=== PATIENT | male | born 1975 | race Caucasian/White ===

== ENCOUNTER 2022-04-06 19:33 | Emergency (ER) | payer OTHER, SELFPAY ==
[2022-04-06] VITALS (21 sets, daily range): BP systolic 93–185; BP diastolic 51–132; PULSE 101–123; RESP 20; TEMP 36.9; O2SAT 94–97; BMI 30.8
--- NOTE | 2022-04-06 | CRLHL7_ITS ---
For Patients: As a result of the Cures Act, medical imaging exams and procedure reports are released immediately into your electronic medical record. You may view this report before your referring provider. If you have questions, please contact your health care provider. INDICATION: Status post fall. TECHNIQUE: Chest radiograph 1 view COMPARISON: 04/17/2018 FINDINGS: Cardiovascular and mediastinum: The heart silhouette is normal in size and morphology. The mediastinum is normal in appearance. Lungs and pleural spaces: Both lungs are unremarkable in appearance. No sign of pleural effusion seen. No pneumothorax is identified. Bones and soft tissues: Screw and plate fixation harder at both clavicles. No displaced rib fracture. IMPRESSION: 1. No acute cardiopulmonary disease is seen. Dictated by Shahid White MD @ 04/06/2022 8:14:02 PM Dictated by: Shahid White MD @ 04/06/2022 20:14:09 (Electronically Signed)
--- NOTE | 2022-04-06 19:52 | CRLHL7_ITS ---
For Patients: As a result of the Century Cures Act, medical imaging exams and procedure reports are released immediately into your electronic medical record. You may view this report before your referring provider. If you have questions, please contact your health care provider. INDICATION: Full trauma. TECHNIQUE: CT chest, abdomen and pelvis acquired with 100 cc Isovue 370 IV contrast. COMPARISON: None. FINDINGS: CHEST: Cardiovascular structures: Heart size is normal. Thoracic aorta and main pulmonary artery are normal in caliber. Mediastinum and rik: No lymphadenopathy. Calcified left hilar and mediastinal lymph nodes. Lungs and pleura: 8 mm left lower lobe posterior basal segment pulmonary nodule. The lungs are otherwise clear without consolidation, pleural effusion, or pneumothorax. Chest wall and axilla: No mass or adenopathy. Bones: Bilateral clavicle plate and screw hardware. No acute fracture or dislocation. ABDOMEN AND PELVIS: Liver: Unremarkable. No sign of acute injury. Gallbladder and bile ducts: Unremarkable. Pancreas: Unremarkable. Spleen: Unremarkable. No sign of acute injury. Adrenal glands: Unremarkable. Kidneys: Unremarkable. GI tract: Small hiatal hernia. Diverticulosis without pericolonic inflammation. No obstruction. Normal appendix. Vascular structures: Unremarkable. Mesenteric arteries are patent. Lymph nodes: Unremarkable. Miscellaneous: Unremarkable. No free air or significant free fluid. Pelvic Organs: Unremarkable. Bones: No acute fracture or dislocation. IMPRESSION: No sign of acute injury within the chest, abdomen, and pelvis. 8 mm left lower lobe pulmonary nodule. Recommend follow-up chest CT in 3 months to evaluate for interval change. Please note that all CT scans at this facility use dose modulation, iterative reconstruction, and/or weight-based dosing when appropriate to reduce radiation dose to as low as reasonably achievable. Dictated by Masoud Mcnulty MD @ 04/06/2022 8:50:40 PM (Electronically Signed)
--- NOTE | 2022-04-06 19:52 | CRLHL7_ITS ---
For Patients: As a result of the Century Cures Act, medical imaging exams and procedure reports are released immediately into your electronic medical record. You may view this report before your referring provider. If you have questions, please contact your health care provider. INDICATION: Fall. TECHNIQUE: Noncontrast CT images acquired through the brain. COMPARISON: None. FINDINGS: The ventricles and sulci are within normal limits for patient age. No mass effect or midline shift. The britton-white differentiation is maintained. No acute intracranial hemorrhage or pathologic extra-axial fluid collection. The globes are symmetric. The calvarium is intact. Mild to moderate paranasal sinus mucosal thickening. The mastoid air cells are clear. IMPRESSION: No acute intracranial hemorrhage or mass effect. Please note that all CT scans at this facility use dose modulation, iterative reconstruction, and/or weight-based dosing when appropriate to reduce radiation dose to as low as reasonably achievable. Dictated by Alton Messer MD @ 04/06/2022 8:25:03 PM (Electronically Signed)
--- NOTE | 2022-04-06 19:52 | CRLHL7_ITS ---
For Patients: As a result of the Century Cures Act, medical imaging exams and procedure reports are released immediately into your electronic medical record. You may view this report before your referring provider. If you have questions, please contact your health care provider. INDICATION: Fall. TECHNIQUE: Noncontrast CT images acquired through the cervical spine. COMPARISON: None. FINDINGS: The cervical lordosis is maintained. Vertebral heights preserved. No acute fracture, spondylolisthesis, or traumatic subluxation. Posterior disc osteophyte complex mildly narrows the spinal canal at C5-6. Mild multilevel facet arthropathy. No high-grade spinal canal or neural foraminal stenosis. No concerning opacities in the lung apices. IMPRESSION 1. No acute fracture or traumatic subluxation. 2. Mild multilevel cervical spondylosis. Please note that all CT scans at this facility use dose modulation, iterative reconstruction, and/or weight-based dosing when appropriate to reduce radiation dose to as low as reasonably achievable. Dictated by Alton Messer MD @ 04/06/2022 8:29:25 PM (Electronically Signed)
--- NOTE | 2022-04-06 20:06 | ED.GENADULT ---
HPI - General Adult General Date Seen: 04/06/22 Chief complaint: Fall/Minor Trauma Stated complaint: Fall Time Seen by Provider: 04/06/22 19:42 Source: patient and EMS Mode of arrival: EMS History of Present Illness HPI narrative: Patient is a 46-year-old male who presents via EMS at around 7:30 p.m.. History is provided by EMS that he was found in his vehicle, [place] his [place]. He does not remember getting into his deer stand, nor does he remember falling out of his deer stand. He does remember apparently crawling to his vehicle, he called 911. Medics note stable vital signs, he was not given medications. Patient tells me that this morning, he did have alcohol on board. He dropped his daughter off at a different location to [place], and then had proceeded to his deer stand. All of this is on his own property. He remembers getting to his deer stand. This would have been at about 4:00 p.m.. He does not remember anything after that. He thinks that he probably fell out of his deer stand because he has pain in his chest when he moves. He also has neck pain. He has a slight headache. He has not had any vomiting that he is aware of. He admits that he has alcohol on board, but he does not think that he had enough to drink that this would affect his ability to remember. He denies back pain. He has chronic pain in his ankle, but otherwise denies any other extremity pain. He is able to answer questions appropriately, and current memory is intact. He denies any medications other than something for depression. He denies allergies. Related Data Home Medications Medication Instructions Recorded Confirmed sertraline 50 mg tablet 50 mg PO 02/26/22 02/26/22 Allergies Allergy/AdvReac Type Severity Reaction Status Date / Time No Known Drug Allergies Allergy Verified 02/26/22 17:18 Review of Systems Status of ROS: Reports: 10 or more systems reviewed and unremarkable except as noted in History and below [facility] Medical History Sprain of right acromioclavicular joint Surgical History S/P ORIF (open reduction internal fixation) fracture (04/28/18) Social History Smoking Status: Current every day smoker What tobacco products do you use: cigarettes Do you use any of these nicotine containing products: Smokeless Tobacco Nicotine containing products detail: chewing tobacco Second hand tobacco smoke exposure: No Non-prescribed substance use: denies use Exam Narrative: Exam Narrative: Primary survey: Airway: Patent. Breathing: Nonlabored. Lungs clear. Circulation: Pulses intact. No external bleeding. Disability: GCS 14, loss of memory of event. Secondary survey: Vital signs reviewed In general, an alert, nontoxic male. Head: Normocephalic, atraumatic. Eyes: Pupils are equal reactive. Extraocular movements full. ENT: No facial trauma. Dentition intact. Neck: Cervical collar in place. No midline cervical tenderness. No anterior neck trauma. Chest: No visible signs of chest trauma. No tenderness to palpation. Heart regular rate and rhythm. Lungs clear bilaterally. Breath sounds equal. Abdomen: No visible signs of trauma. Soft, nondistended, nontender to palpation. Back: No visible signs of trauma. Nontender to palpation. Pelvis: Stable, nontender. Extremities: Atraumatic and nontender to palpation. Neurologic: Alert, conversant, moves all extremities to command. Skin: Warm and dry, no abrasions or lacerations. Const: Vital Signs, click to edit/add: Vital Signs - 24 hr 04/06/22 19:51 04/06/22 19:54 04/06/22 20:20 Temperature Pulse Rate 123 H Pulse Rate [Pulse Oximeter] Respiratory Rate Blood Pressure 150/98 H 159/119 H Blood Pressure [Le ft Upper Arm] Pulse Oximetry 96 95 Oxygen Delivery Me thod 04/06/22 20:21 04/06/22 20:30 04/06/22 20:31 Temperature Pulse Rate 101 H 105 H 107 H Pulse Rate [Pulse Oximeter] Respiratory Rate Blood Pressure 166/109 H 152/107 H Blood Pressure [Le ft Upper Arm] Pulse Oximetry 94 95 95 Oxygen Delivery Me thod 04/06/22 19:35 04/06/22 20:32 04/06/22 20:41 Temperature 98.5 F Pulse Rate 106 H Pulse Rate [Pulse Oximeter] 115 H Respiratory Rate 20 Blood Pressure 150/87 H Blood Pressure [Le ft Upper Arm] 155/100 H Pulse Oximetry 97 95 Oxygen Delivery Me thod Room Air 04/06/22 20:51 04/06/22 21:01 04/06/22 21:12 Temperature Pulse Rate Pulse Rate [Pulse Oximeter] Respiratory Rate Blood Pressure 137/85 158/132 H 185/100 H Blood Pressure [Le ft Upper Arm] Pulse Oximetry Oxygen Delivery Me thod 04/06/22 21:22 04/06/22 21:31 04/06/22 21:41 Temperature Pulse Rate Pulse Rate [Pulse Oximeter] Respiratory Rate Blood Pressure 151/83 H 125/67 118/73 Blood Pressure [Le ft Upper Arm] Pulse Oximetry Oxygen Delivery Me thod 04/06/22 21:50 04/06/22 21:51 04/06/22 22:01 Temperature Pulse Rate 110 H 110 H Pulse Rate [Pulse Oximeter] Respiratory Rate Blood Pressure 125/70 95/60 Blood Pressure [Le ft Upper Arm] Pulse Oximetry Oxygen Delivery Me thod 04/06/22 22:11 04/06/22 22:25 04/06/22 22:32 Temperature Pulse Rate Pulse Rate [Pulse Oximeter] Respiratory Rate Blood Pressure 100/51 L 93/57 L 113/68 Blood Pressure [Le ft Upper Arm] Pulse Oximetry Oxygen Delivery Me thod 04/07/22 06:51 04/07/22 05:00 Temperature 98.5 F Pulse Rate Pulse Rate [Pulse Oximeter] 81 81 Respiratory Rate 16 16 Blood Pressure Blood Pressure [Le ft Upper Arm] 148/91 H 151/89 H Pulse Oximetry 97 Oxygen Delivery Me thod Room Air Documenting provider has reviewed patient's vital signs: yes Course Course Hospital Course: Following initial evaluation, I did an E fast exam. He had sliding lung signs bilaterally, no evidence of pericardial effusion, and no fluid on abdominal exam. He had a portable chest x-ray which by my review showed no acute findings such as pneumothorax, obvious fracture. Then went on to have CT scans of the head, cervical spine, chest abdomen pelvis. He had labs drawn for CBC, basic metabolic panel, coags, LFTs, UA, urine drug screen, and blood alcohol level, as well as a point of care troponin. I also did an EKG, which by my review showed a sinus tachycardia, ventricular rate of 105 beats per minute. He did not have acute ST segment changes. His troponin came back at 0. Labs showed a normal white blood cell count and hemoglobin of 15.4. Platelets were normal. INR was 0.83. Metabolic panel was normal. Blood sugar was 86. LFT showed an AST of 58 and an ALT of 97. Otherwise normal. Urinalysis showed trace blood, 0-2 red cells 0-2 white cells. Urine drug screen was negative. His blood alcohol came back at 0.26. I reviewed his head CT, and CTs of his chest abdomen and pelvis. Head CT to me look negative without evidence of hemorrhage or fracture. I did not see any acute findings on the chest, abdomen or pelvis. Final radiology read for his chest abdomen pelvis, head and cervical spine were all negative for acute findings. On the lungs, they did note an 8 mm pulmonary nodule in the left lung. I have discussed all this with the patient, and his 18-year-old daughter was there as well. Patient tells me he has a diagnosis of histoplasmosis and he thinks that that lesion on the left is old, he says he has had biopsies on his long previously. He believes he had a CT scan somewhere [address] [facility] previously but he can not remember where. I told him that the radiologist is recommending a 3 month follow-up for this lesion, which he should arrange through primary care unless he can compare with the previous scan or read to see if that lesion is stable. At this time, it is a little unclear exactly what happened today. There are several hours during which time the patient's activities are unaccounted for, and he does not have any memory of what was going on during that time. He may have had a fall from his deer stand, he may have had a syncopal episode, he may have had a fall from standing height. He does have pain that leads him to believe that he had an injury of some kind. His blood alcohol now is 0.26, based on how lucid he is, I suspect that he has a significant alcohol history. However, I recommended to him that we have him stay here for observation for at least another 4-6 hours, so that we have the opportunity to have a conversation with less alcohol on board, to clear his C-spine, and make sure he is not having any further neurologic difficulties. It is unclear to me whether he may have had a concussion or whether his memory loss is simply due to alcohol. Initially he had agreed to that, then got a little more difficult, he took off his collar, said he just was uncomfortable and wanted to go home. I was able to talk with him a little bit more and at this point he has agreed to stay overnight and just have someone pick him up in the morning. Right now, he is refusing to wear the cervical collar, and given the negative CT scan, I think it is more reasonable not to force that issue. Likewise, I have told him that if he really decides that he is going to leave that we will not having a physical altercation him to stay, but that my request would be that he wait until he is able to make a sober decision to leave. Plan at this time is for him to stay here overnight, and 1 of his daughters will pick him up in the morning. I think if he is neurologically stable at that time, not complaining of midline neck pain, that he can be discharged with outpatient follow-up. Patient is signed out to Dr. Becerra for the night. Vital Signs Vital signs: Initial Vital Signs Temperature 98.5 F 04/06/22 19:35 Temperature Source Temporal Artery Scan 04/06/22 19:35 Pulse Rate 115 H 04/06/22 19:35 Pulse Rhythm 04/06/22 19:35 Respiratory Rate 20 04/06/22 19:35 Blood Pressure 155/100 H 04/06/22 19:35 Blood Pressure Mean 118 04/06/22 19:35 Blood Pressure Position Supine 04/06/22 19:35 Pulse Oximetry 97 04/06/22 19:35 Oxygen Delivery Method 04/06/22 19:35 Vital Signs Temperature 98.5 F 04/06/22 19:35 Pulse Rate 115 H 04/06/22 19:35 Respiratory Rate 20 04/06/22 19:35 Blood Pressure 155/100 H 04/06/22 19:35 Pulse Oximetry 97 04/06/22 19:35 Oxygen Delivery Method 04/06/22 19:35 Temperature 98.5 F 04/07/22 05:00 Pulse Rate 81 04/07/22 06:51 Respiratory Rate 16 04/07/22 06:51 Blood Pressure 148/91 H 04/07/22 06:51 Pulse Oximetry 97 04/07/22 05:00 Oxygen Delivery Method 04/07/22 05:00 Medical Decision Making Lab Data Labs: Lab Results 04/06/22 04/06/22 04/06/22 Range/Units 19:56 19:56 19:56 WBC 10.45 (4.50-11.00) K/uL RBC 4.40 (4.30-5.90) m/uL Hgb 15.4 (13.5-17.5) gm/dL Hct 44.6 (37.0-53.0) % MCV 101 H (80-100) fL MCH 35 H (26-34) pg MCHC 35 (32-36) gm/dL RDW Coeff of Spencer 12.4 (11.5-15.5) % Plt Count 337 (140-440) K/uL Neut % (Auto) 83.2 H (42.0-72.0) % Lymph % (Auto) 10.9 L (20-44) % Walsh % (Auto) 4.5 (0.0-11.0) % Eos % (Auto) 0.8 (0.0-7.0) % Baso % (Auto) 0.2 (0.0-3.0) % Neut # (Auto) 8.70 H (1.7-7.0) K/uL Lymph # (Auto) 1.10 (0.90-2.90) K/uL Walsh # (Auto) 0.50 (0.00-0.90) K/UL Eos # (Auto) 0.08 (0.00-0.50) K/uL Baso # (Auto) 0.02 (0.00-0.30) K/uL INR 0.83 L (0.91-1.10) APTT 28 (23-33) Seconds Sodium 145 (135-149) mmol/L Potassium 4.3 (3.6-5.1) mmol/L Chloride 109 (96-114) mmol/L Carbon Dioxide 24 (20-32) mmol/L BUN 17 (5-24) mg/dL Creatinine 0.9 (0.5-1.5) mg/dL Estimated GFR 107 ml/min Glucose 86 (60-115) mg/dL Calcium 8.6 (8.4-10.6) mg/dL Total Bilirubin (0.1-1.5) mg/dL Direct Bilirubin (0.0-0.5) mg/dL AST (12-35) U/L ALT (4-50) U/L Alkaline Phosphatase (40-150) U/L Total Protein (6.0-8.3) g/dL Albumin (3.3-5.0) g/dL Urine Color (Yellow) Urine Appearance (Clear) Urine pH (5.0-8.5) Ur Specific [place] (1.000-1.030) Urine Protein (Negative) Urine Glucose (UA) (Negative) Urine Ketones (Negative) Urine Blood (Negative) Urine Nitrite (Negative) Urine Bilirubin (Negative) Urine Urobilinogen (0.2-1.0) Ur Leukocyte Esterase (Negative) Urine RBC (0-2) Urine WBC (0-5) Ur Squamous Epith Cells (None-Few) Urine Bacteria (None) Urine Opiates Screen (Negative) Ur Oxycodone Screen (Negative) Urine Methadone Screen (Negative) Ur Propoxyphene Screen (Negative) Ur Barbiturates Screen (Negative) U Tricyclic Antidepress (Negative) Ur Phencyclidine Scrn (Negative) Ur Amphetamines Screen (Negative) U Methamphetamines Scrn (Negative) U Benzodiazepines Scrn (Negative) Urine Cocaine Screen (Negative) U Marijuana (THC) Screen (Negative) Ur Drug Screen Comment Ethyl Alcohol (0.01-0.03) % SARS-CoV-2 (PCR) (Negative) POC Troponin I (0.01-0.04) ng/ml Blood Type Antibody Screen 04/06/22 04/06/22 04/06/22 Range/Units 19:56 19:56 19:56 WBC (4.50-11.00) K/uL RBC (4.30-5.90) m/uL Hgb (13.5-17.5) gm/dL Hct (37.0-53.0) % MCV (80-100) fL MCH (26-34) pg MCHC (32-36) gm/dL RDW Coeff of Spencer (11.5-15.5) % Plt Count (140-440) K/uL Neut % (Auto) (42.0-72.0) % Lymph % (Auto) (20-44) % Walsh % (Auto) (0.0-11.0) % Eos % (Auto) (0.0-7.0) % Baso % (Auto) (0.0-3.0) % Neut # (Auto) (1.7-7.0) K/uL Lymph # (Auto) (0.90-2.90) K/uL Walsh # (Auto) (0.00-0.90) K/UL Eos # (Auto) (0.00-0.50) K/uL Baso # (Auto) (0.00-0.30) K/uL INR (0.91-1.10) APTT (23-33) Seconds Sodium (135-149) mmol/L Potassium (3.6-5.1) mmol/L Chloride (96-114) mmol/L Carbon Dioxide (20-32) mmol/L BUN (5-24) mg/dL Creatinine (0.5-1.5) mg/dL Estimated GFR ml/min Glucose (60-115) mg/dL Calcium (8.4-10.6) mg/dL Total Bilirubin 0.5 (0.1-1.5) mg/dL Direct Bilirubin 0.2 (0.0-0.5) mg/dL AST 58 H (12-35) U/L ALT 97 H (4-50) U/L Alkaline Phosphatase 81 (40-150) U/L Total Protein 8.1 (6.0-8.3) g/dL Albumin 5.0 (3.3-5.0) g/dL Urine Color (Yellow) Urine Appearance (Clear) Urine pH (5.0-8.5) Ur Specific [place] (1.000-1.030) Urine Protein (Negative) Urine Glucose (UA) (Negative) Urine Ketones (Negative) Urine Blood (Negative) Urine Nitrite (Negative) Urine Bilirubin (Negative) Urine Urobilinogen (0.2-1.0) Ur Leukocyte Esterase (Negative) Urine RBC (0-2) Urine WBC (0-5) Ur Squamous Epith Cells (None-Few) Urine Bacteria (None) Urine Opiates Screen (Negative) Ur Oxycodone Screen (Negative) Urine Methadone Screen (Negative) Ur Propoxyphene Screen (Negative) Ur Barbiturates Screen (Negative) U Tricyclic Antidepress (Negative) Ur Phencyclidine Scrn (Negative) Ur Amphetamines Screen (Negative) U Methamphetamines Scrn (Negative) U Benzodiazepines Scrn (Negative) Urine Cocaine Screen (Negative) U Marijuana (THC) Screen (Negative) Ur Drug Screen Comment Ethyl Alcohol (0.01-0.03) % SARS-CoV-2 (PCR) (Negative) POC Troponin I 0.00 L (0.01-0.04) ng/ml Blood Type A Positive Antibody Screen NEGATIVE 04/06/22 04/06/22 04/06/22 Range/Units 19:56 20:27 20:37 WBC (4.50-11.00) K/uL RBC (4.30-5.90) m/uL Hgb (13.5-17.5) gm/dL Hct (37.0-53.0) % MCV (80-100) fL MCH (26-34) pg MCHC (32-36) gm/dL RDW Coeff of Spencer (11.5-15.5) % Plt Count (140-440) K/uL Neut % (Auto) (42.0-72.0) % Lymph % (Auto) (20-44) % Walsh % (Auto) (0.0-11.0) % Eos % (Auto) (0.0-7.0) % Baso % (Auto) (0.0-3.0) % Neut # (Auto) (1.7-7.0) K/uL Lymph # (Auto) (0.90-2.90) K/uL Walsh # (Auto) (0.00-0.90) K/UL Eos # (Auto) (0.00-0.50) K/uL Baso # (Auto) (0.00-0.30) K/uL INR (0.91-1.10) APTT (23-33) Seconds Sodium (135-149) mmol/L Potassium (3.6-5.1) mmol/L Chloride (96-114) mmol/L Carbon Dioxide (20-32) mmol/L BUN (5-24) mg/dL Creatinine (0.5-1.5) mg/dL Estimated GFR ml/min Glucose (60-115) mg/dL Calcium (8.4-10.6) mg/dL Total Bilirubin (0.1-1.5) mg/dL Direct Bilirubin (0.0-0.5) mg/dL AST (12-35) U/L ALT (4-50) U/L Alkaline Phosphatase (40-150) U/L Total Protein (6.0-8.3) g/dL Albumin (3.3-5.0) g/dL Urine Color (Yellow) Urine Appearance (Clear) Urine pH (5.0-8.5) Ur Specific [place] (1.000-1.030) Urine Protein (Negative) Urine Glucose (UA) (Negative) Urine Ketones (Negative) Urine Blood (Negative) Urine Nitrite (Negative) Urine Bilirubin (Negative) Urine Urobilinogen (0.2-1.0) Ur Leukocyte Esterase (Negative) Urine RBC (0-2) Urine WBC (0-5) Ur Squamous Epith Cells (None-Few) Urine Bacteria (None) Urine Opiates Screen Negative (Negative) Ur Oxycodone Screen Negative (Negative) Urine Methadone Screen Negative (Negative) Ur Propoxyphene Screen Negative (Negative) Ur Barbiturates Screen Negative (Negative) U Tricyclic Antidepress Negative (Negative) Ur Phencyclidine Scrn Negative (Negative) Ur Amphetamines Screen Negative (Negative) U Methamphetamines Scrn Negative (Negative) U Benzodiazepines Scrn Negative (Negative) Urine Cocaine Screen Negative (Negative) U Marijuana (THC) Screen Negative (Negative) Ur Drug Screen Comment See Note Ethyl Alcohol 0.26 H (0.01-0.03) % SARS-CoV-2 (PCR) Negative SARS-CoV-2 (Negative) POC Troponin I (0.01-0.04) ng/ml Blood Type Antibody Screen 04/06/22 Range/Units 20:37 WBC (4.50-11.00) K/uL RBC (4.30-5.90) m/uL Hgb (13.5-17.5) gm/dL Hct (37.0-53.0) % MCV (80-100) fL MCH (26-34) pg MCHC (32-36) gm/dL RDW Coeff of Spencer (11.5-15.5) % Plt Count (140-440) K/uL Neut % (Auto) (42.0-72.0) % Lymph % (Auto) (20-44) % Walsh % (Auto) (0.0-11.0) % Eos % (Auto) (0.0-7.0) % Baso % (Auto) (0.0-3.0) % Neut # (Auto) (1.7-7.0) K/uL Lymph # (Auto) (0.90-2.90) K/uL Walsh # (Auto) (0.00-0.90) K/UL Eos # (Auto) (0.00-0.50) K/uL Baso # (Auto) (0.00-0.30) K/uL INR (0.91-1.10) APTT (23-33) Seconds Sodium (135-149) mmol/L Potassium (3.6-5.1) mmol/L Chloride (96-114) mmol/L Carbon Dioxide (20-32) mmol/L BUN (5-24) mg/dL Creatinine (0.5-1.5) mg/dL Estimated GFR ml/min Glucose (60-115) mg/dL Calcium (8.4-10.6) mg/dL Total Bilirubin (0.1-1.5) mg/dL Direct Bilirubin (0.0-0.5) mg/dL AST (12-35) U/L ALT (4-50) U/L Alkaline Phosphatase (40-150) U/L Total Protein (6.0-8.3) g/dL Albumin (3.3-5.0) g/dL Urine Color Yellow (Yellow) Urine Appearance Clear (Clear) Urine pH 5.5 (5.0-8.5) Ur Specific [place] 1.015 (1.000-1.030) Urine Protein Negative (Negative) Urine Glucose (UA) Negative (Negative) Urine Ketones Trace A (Negative) Urine Blood Trace-lysed A (Negative) Urine Nitrite Negative (Negative) Urine Bilirubin Negative (Negative) Urine Urobilinogen 0.2 (0.2-1.0) Ur Leukocyte Esterase Negative (Negative) Urine RBC 0-2 (0-2) Urine WBC 0-2 (0-5) Ur Squamous Epith Cells None (None-Few) Urine Bacteria None (None) Urine Opiates Screen (Negative) Ur Oxycodone Screen (Negative) Urine Methadone Screen (Negative) Ur Propoxyphene Screen (Negative) Ur Barbiturates Screen (Negative) U Tricyclic Antidepress (Negative) Ur Phencyclidine Scrn (Negative) Ur Amphetamines Screen (Negative) U Methamphetamines Scrn (Negative) U Benzodiazepines Scrn (Negative) Urine Cocaine Screen (Negative) U Marijuana (THC) Screen (Negative) Ur Drug Screen Comment Ethyl Alcohol (0.01-0.03) % SARS-CoV-2 (PCR) (Negative) POC Troponin I (0.01-0.04) ng/ml Blood Type Antibody Screen Discharge Plan Discharge Clinical Impression: Concussion, Alcohol intoxication, Incidental lung nodule, Contusion of chest Patient Disposition: Home, Self-Care Condition: Improved Additional Instructions: You can take ibuprofen or Tylenol if needed for pain. Would recommend follow-up with a primary care doctor in the next week, given the uncertainty surrounding today's event. You have a nodule in the left lower lung noted incidentally, the radiologist recommends follow-up in 3 months, if this has been seen before in is stable you would not need to have it rechecked but this should be confirmed by comparison with previous imaging. Prescriptions: No Action sertraline 50 mg tablet 50 mg PO Follow Up/Referrals: Provider,Not a Local [Primary Care Provider] - Stand Alone Forms: [employer] Info Instructions
[2022-04-06 20:11] LABS: Basophils Absolute Auto 0.02 K/uL (0.00-0.30); Basophils Percent Auto 0.2 % (0.0-3.0); Eosinophils Absolute Auto 0.08 K/uL (0.00-0.50); Eosinophils Percent Auto 0.8 % (0.0-7.0); Hematocrit 44.6 % (37.0-53.0); Hemoglobin* 15.4 gm/dL (13.5-17.5); Immature Granulocytes Abs Auto 0.04 K/uL (0.00-0.30); Immature Granulocytes Pct Auto 0.4 %; Lymphocytes Percent Auto 10.9 % (20-44); Mean Corpuscular HGB Conc 35 gm/dL (32-36); Mean Corpuscular Hemoglobin 35 pg (26-34); Mean Corpuscular Volume 101 fL (80-100); Monocytes Percent Auto 4.5 % (0.0-11.0); Neutrophils Percent Auto 83.2 % (42.0-72.0); Platelet Count* 337 K/uL (140-440); RDW Coefficient of Variation % 12.4 % (11.5-15.5); White Blood Count* 10.45 K/uL (4.50-11.00)
--- NOTE | 2022-04-06 20:18 | ED.NURSE ---
Pt back from imaging. IVF infusing. Pt remains a+o x4.
[2022-04-06] MEDS: 0.9 % SODIUM CHLORIDE 1000 ml 1,000 ML IV (20:22)
[2022-04-06 20:25] LABS: Chloride* 109 mmol/L (96-114)
[2022-04-06 20:26] LABS: Potassium* 4.3 mmol/L (3.6-5.1); Sodium* 145 mmol/L (135-149)
[2022-04-06 20:27] LABS: INR 0.83 (0.91-1.10); Prothrombin Time 11.9 Seconds
[2022-04-06 20:28] LABS: Creatinine* 0.9 mg/dL (0.5-1.5); Estimated Glomerular Filt Rate 107 ml/min; Partial Thromboplastin Time* 28 Seconds (23-33); Slide Review Reflex No
[2022-04-06 20:29] LABS: Alkaline Phosphatase* 81 U/L (40-150); Aspartate Amino Transferase* 58 U/L (12-35); Bilirubin Direct* 0.2 mg/dL (0.0-0.5); Bilirubin Total* 0.5 mg/dL (0.1-1.5); Blood Urea Nitrogen* 17 mg/dL (5-24); Calcium* 8.6 mg/dL (8.4-10.6); Carbon Dioxide* 24 mmol/L (20-32); Glucose* 86 mg/dL (60-115); Total Protein* 8.1 g/dL (6.0-8.3)
[2022-04-06 20:30] LABS: Alanine Aminotransferase* 97 U/L (4-50)
--- NOTE | 2022-04-06 20:54 | ED.NURSE ---
Warm blanket provided, per Pt request. Declines pain meds at this time.
[2022-04-06 20:57] LABS: Appearance Urine Clear (Clear); Bilirubin Urine Negative (Negative); Blood Urine Trace-lysed (Negative); Color Urine Yellow (Yellow); Glucose Urine Negative (Negative); Ketones Urine Trace (Negative); Leukocyte Esterase Urine Negative (Negative); Nitrite Urine Negative (Negative); Protein Urine Negative (Negative); Specific Gravity Urine 1.015 (1.000-1.030); Urobilinogen Urine 0.2 (0.2-1.0); pH Urine 5.5 (5.0-8.5)
[2022-04-06 20:59] LABS: Ethanol* 0.26 % (0.01-0.03)
[2022-04-06 21:04] LABS: Amphetamine Screen Urine Negative (Negative); Barbiturate Screen Urine Negative (Negative); Benzodiazepines Screen Urine Negative (Negative); Cannabinoid Screen Urine Negative (Negative); Cocaine Screen Urine Negative (Negative); Methadone Screen Urine Negative (Negative); Methamphetamines Screen Urine Negative (Negative); Opiate Screen Urine Negative (Negative); Oxycodone Screen Urine Negative (Negative); Phencyclidine Screen Urine Negative (Negative); Tricyclic Antidepressant Urine Negative (Negative)
[2022-04-06 21:14] LABS: RBC Urine 0-2 (0-2); WBC Urine 0-2 (0-5)
[2022-04-06 21:26] LABS: SARS PCR* Negative SARS-CoV-2 (Negative)
--- NOTE | 2022-04-06 21:39 | ED.NURSE ---
rec observation for 4-6 hrs. Pt has removed c-collar, wants to leave. notified and states she will go speak with Pt.
--- NOTE | 2022-04-06 22:01 | ED.NURSE ---
Pt agrees to stay until morning. C-collar remains off, okay with MD. Call light within reach.
--- NOTE | 2022-04-06 22:11 | ED.NURSE ---
Report given to TEMITOPE Noble.
--- NOTE | 2022-04-06 22:43 | ED.NURSE ---
IV dc'd by pt accidentally pulling it out, tip intact, bandage applied.
--- NOTE | 2022-04-07 03:26 | ED.NURSE ---
patient up to bathroom ind gait, states sternal pain still hurts but denies other pain.
[2022-04-07 05:00] VITALS: BP 151/89; PULSE 81; RESP 16; TEMP 36.9; O2SAT 97
--- NOTE | 2022-04-07 06:30 | ED.NURSE ---
patient up walking in room, states he feels ready to go home. pt states sternal pain feels better, neck stiff and sore - md rojas updated and verbal that he will go talk with pt prior to discharging.
[2022-04-07 06:51] VITALS: BP 148/91; PULSE 81; RESP 16
== END 2022-04-07 06:58 | disposition home or self-care (01) ==
PROVIDERS: Emergency Provider Emergency Medicine
DX: S06.0XAA Concussion with loss of consciousness status unknown, initial encounter (principal); F10.129 Alcohol abuse with intoxication, unspecified; R91.1 Solitary pulmonary nodule
CPT/HCPCS: 36415; 70450; 71045; 71260; 72125; 74177; 80048; 80076; 80306; 81001; 82077; 84484; 85025; 85610; 85730; 86850; 86900; 86901; 87635; 93005; 94761; 99284; 99291; G0390; J7030; Q9967